=== PATIENT | male | born 1985 | race Two or more races ===

== ENCOUNTER 2022-03-10 19:49 | Emergency (ER) | payer SELFPAY ==
[~2022-03-10] VITALS: Ht 182.9 cm; Wt 93.0 kg
[2022-03-10] MEDS ORDERED: TDAP [DIPH/PERTUSSIS/TET] 0.5 ML VIAL IM ONE ×2 (20:10→20:30)
[2022-03-10] MEDS ORDERED: IBUPROFEN 600 MG TABLET ONE (20:10)
[2022-03-10] MEDS ORDERED: ACETAMINOPHEN ES 500 MG TABLET ONE (20:10)
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
--- NOTE | 2022-03-10 20:14 | NUR ---
[facility] AT BEDSIDE
--- NOTE | 2022-03-10 20:18 | NUR ---
PT TAKEN TO CT SCAN VIA [facility]
--- NOTE | 2022-03-10 20:29 | NUR ---
PT BACK FROM CT, RECONNECTED TO MONITOR
[2022-03-10] MEDS ORDERED: ACETAMINOPHEN ES 500 MG TABLET PO ONE (20:30)
[2022-03-10] MEDS ORDERED: IBUPROFEN 600 MG TABLET PO ONE (20:30)
[2022-03-10] MEDS ORDERED: LIDOCAINE 1%-EPI 1:100,000 20 ML VIAL ONE ×2 (20:46→20:54)
[2022-03-10] MEDS ORDERED: LIDOCAINE 2%-EPI 1:100,000 30 ML VIAL TP ONE (21:00)
[2022-03-10] MEDS ORDERED: CEPH500C2 PO (21:03)
[2022-03-10] MEDS ORDERED: IBUP-1953 PO (21:03)
[2022-03-10 21:20] VITALS: BP 149/84
--- NOTE | 2022-03-10 21:20 | NUR ---
Patient discharged to home in stable condition. Written and verbal after care instructions given. Patient verbalizes understanding of instruction.
== END 2022-03-10 21:21 | disposition home or self-care (01) ==
LOC: ER 19:51
DX: S01.01XA Laceration without foreign body of scalp, initial encounter (principal); S09.90XA Unspecified injury of head, initial encounter; Y00.XXXA Assault by blunt object, initial encounter; Y93.89 Activity, other specified; Y92.89 Other specified places as the place of occurrence of the external cause; Y99.8 Other external cause status
CPT/HCPCS: 99284; 72125; 12004; 90471; 90715; 70450; J3490 ×2